=== PATIENT | male | born 1940 | race Caucasian/White ===

== ENCOUNTER → 2016-10-05 | Outpatient (CLI) | payer OTHER ==
[~2016-10-05] MED LIST: BACTRIM,SEPT1 TABLET PO; CARDURA4 MG PO; CEFTIN500 MG PO; CIPRO250 MG PO; CLONIDINE HCL0.1 MG PO; COLACE100 MG PO; DIGOXIN250 MCG PO; DOXAZOSIN MESYLA4 MG PO; FLEXERIL10 MG PO; HYDROCODON-ACE1 EA12 PO; JANTOVEN5 MG PO; KEFLEX500 MG PO; LOPRESSOR100 M1 PO; LOTENSIN40 MG PO; METFORMIN HCL500 MG PO; TAMSULOSIN HCL0.4 MG PO; TENORMIN100 MG PO; TYLENOL ARTHRI650 MG PO; ULTRAM50 MG PO; WARFARIN SODIUM5 MG PO
== END | disposition home or self-care (01) ==
DX: M16.12 Unilateral primary osteoarthritis, left hip (principal); R26.2 Difficulty in walking, not elsewhere classified; M25.552 Pain in left hip; M25.652 Stiffness of left hip, not elsewhere classified; M62.81 Muscle weakness (generalized); Z74.1 Need for assistance with personal care
CPT/HCPCS: 97110 GP; 97150 GO; 97161 GP; 97165 GO; G8978 GP; G8979 GP; G8980 GP; G8987 GO; G8988 GO; G8989 GO

== ENCOUNTER 2016-11-08 21:23 | Inpatient (IN) | payer OTHER ==
[~2016-11-08] VITALS: Ht 180.3 cm; Wt 134.8 kg
[~2016-11-08 21:23] MED LIST changes: +ACTOS45 MG PO; +ARICEPT5 MG PO; +CATAPRES0.1 MG PO; +GLUCOPHAGE1000 MG PO; +PRAVACHOL80 MG PO; +PROSCAR5 MG PO; +VICODIN ES 7.51 EAC1 PO; +XARELTO20 MG PO
[2016-11-09 09:59] LABS: POINT-OF-CARE METER ID UU14174212
[2016-11-09 10:16] VITALS: BP 157/75
[2016-11-09 10:16] LABS: PTT 33.4 SEC (25-37)
[2016-11-09 10:17] LABS: INTER. NORMALIZED RATIO 1.2; PROTHROMBIN TIME 13.3 SEC (10.2-12.9)
[2016-11-09 14:17] LABS: POINT-OF-CARE METER ID UU13113675
[2016-11-09 14:56] LABS: HEMATOCRIT 30.7 % (38.0-50.0); MCV 94.8 FL (86-99)
[2016-11-09 16:36] LABS: POINT-OF-CARE METER ID UU13113675
[2016-11-09 18:36] VITALS: BP 146/67
[2016-11-09 19:20] VITALS: BP 126/60
[2016-11-09 21:35] LABS: POINT-OF-CARE METER ID UU14208753
[2016-11-09 23:25] VITALS: BP 124/65
[2016-11-10 04:09] VITALS: BP 138/70
[2016-11-10 06:25] LABS: INTER. NORMALIZED RATIO 1.3; PROTHROMBIN TIME 14.7 SEC (10.2-12.9)
[2016-11-10 06:35] LABS: ANION GAP 7 MEQ/L (2-14); CHLORIDE 105 MEQ/L (99-109); GFR ESTIMATE (CALCULATED) 49 mL/min/; GLUCOSE 127 mg/dL (70-99); POTASSIUM 5.1 MEQ/L (3.7-5.4); SAMPLE HEMOLYSIS CHECK 0; SAMPLE ICTERIC CHECK 0; SAMPLE LIPEMIA CHECK 0; SODIUM 137 MEQ/L (136-147); UREA NITROGEN (BUN) 23 mg/dL (9-23)
[2016-11-10 07:07] LABS: POINT-OF-CARE METER ID UU14117124
[2016-11-10 08:16] VITALS: BP 108/51
[2016-11-10 11:22] VITALS: BP 94/55
[2016-11-10 11:41] LABS: POINT-OF-CARE METER ID UU14117124
[2016-11-10 12:33] LABS: HEMATOCRIT 28.1 % (38.0-50.0); MCV 95.9 FL (86-99)
[2016-11-10 16:26] VITALS: BP 124/67
[2016-11-10 16:35] LABS: POINT-OF-CARE METER ID UU14117124
[2016-11-10 19:41] VITALS: BP 116/55
[2016-11-10 22:00] LABS: POINT-OF-CARE METER ID UU14117124
[2016-11-10 23:30] VITALS: BP 126/60
[2016-11-11] VITALS (10 sets, daily range): BP systolic 100–141; BP diastolic 43–85
[2016-11-11 06:29] LABS: HEMATOCRIT 24.6 % (38.0-50.0); MCV 96.1 FL (86-99)
[2016-11-11 06:38] LABS: INTER. NORMALIZED RATIO 1.5
[2016-11-11 06:49] LABS: POINT-OF-CARE METER ID UU14117124
[2016-11-11] MEDS ORDERED: COUMADIN2.5 MG PO (09:35)
[2016-11-11] MEDS ORDERED: HYDROCODON-ACE1 EAC7 PO (09:36)
[2016-11-11 11:47] LABS: POINT-OF-CARE METER ID UU14117124
[2016-11-11 16:37] LABS: POINT-OF-CARE METER ID UU14117124
[2016-11-11 21:52] LABS: POINT-OF-CARE METER ID UU14117124
[2016-11-11 22:20] LABS: HEMATOCRIT 26.4 % (38.0-50.0)
[2016-11-12 07:16] LABS: EOSINOPHIL (%) 1.2 % (0-5); EOSINOPHIL COUNT 0.1 K/uL (0-0.3); HEMATOCRIT 27.8 % (38.0-50.0); IMMATURE GRANULOCYTE (%) 0.4 % (0.0-0.7); LYMPHOCYTE COUNT 1.2 K/uL (1.0-2.8); MCH 31.5 PG (29.0-34.0); MCHC 32.7 G/DL (30.0-36.0); MCV 96.2 FL (86-99); MEAN PLAT.VOLUME 10.6 uM^3 (9.0-12.4); MONOCYTE (%) 8.5 % (3-12); MONOCYTE COUNT 0.6 K/uL (0-0.8); NEUTROPHIL (%) 72.5 % (45-76); RBC DIS.WIDTH-CV 14.4 % (11.8-14.6); RBC DIS.WIDTH-SD 50.7 % (39-53); WHITE BLOOD COUNT 6.9 K/uL (4.1-10.2)
[2016-11-12 07:20] LABS: PLATELET COUNT 129 K/uL (156-360); RED BLOOD COUNT 2.89 M/uL (4.00-5.50)
[2016-11-12 07:35] LABS: INTER. NORMALIZED RATIO 1.7; PROTHROMBIN TIME 18.7 SEC (10.2-12.9)
[2016-11-12 08:15] VITALS: BP 138/63
[2016-11-12 11:26] LABS: POINT-OF-CARE METER ID UU14117124
== END 2016-11-12 14:15 | DRG 470 ==
LOC: ENRESERV 21:23 → 2SOUTH 11-09 09:08 → 3EAST 11-09 09:08 → 2SOUTH 11-09 11:41 → ENRESERV 11-09 17:35 → 3EAST 11-09 18:08
PROVIDERS: Orthopaedic Surgery
PROC: 0SRB02A Replacement of Left Hip Joint with Metal on Polyethylene Synthetic Substitute, Uncemented, Open Approach (ICD-10-PCS; principal; 2016-11-11)
DX: M16.12 Unilateral primary osteoarthritis, left hip (principal); E11.22 Type 2 diabetes mellitus with diabetic chronic kidney disease; E78.00 Pure hypercholesterolemia, unspecified; I48.2 Chronic atrial fibrillation; N18.9 Chronic kidney disease, unspecified; E66.01 Morbid (severe) obesity due to excess calories; M25.562 Pain in left knee; I12.9 Hypertensive chronic kidney disease with stage 1 through stage 4 chronic kidney disease, or unspecified chronic kidney disease; Z79.899 Other long term (current) drug therapy; M25.561 Pain in right knee; R60.0 Localized edema; M79.89 Other specified soft tissue disorders; D62 Acute posthemorrhagic anemia; Z96.652 Presence of left artificial knee joint; Z90.49 Acquired absence of other specified parts of digestive tract; Z79.01 Long term (current) use of anticoagulants; Z87.442 Personal history of urinary calculi; Z68.39 Body mass index [BMI] 39.0-39.9, adult; N40.0 Benign prostatic hyperplasia without lower urinary tract symptoms
CPT/HCPCS: 71010; 80048; 82948; 85014; 85018; 85025; 85610; 85730; 93971; 94799; 97530 GO; 97530 GP; J0131; J0360; J0690; J1815; J2250; J7030; J7050; P9016

== ENCOUNTER 2017-01-03 16:31 | Emergency (ER) | payer OTHER ==
[~2017-01-03] VITALS: Ht 180.3 cm; Wt 132.0 kg
[~2017-01-03 16:31] MED LIST changes: +COUMADIN2.5 MG PO; +HYDROCODON-ACE1 EAC7 PO
[2017-01-03 17:40] LABS: HEMATOCRIT 17.9 % (38.0-50.0); MCH 32.4 PG (29.0-34.0); MCV 98.4 FL (86-99); MEAN PLAT.VOLUME 10.2 uM^3 (9.0-12.4); PLATELET COUNT 221 K/uL (156-360); RBC DIS.WIDTH-CV 16.8 % (11.8-14.6); RBC DIS.WIDTH-SD 57.4 % (39-53); RED BLOOD COUNT 1.82 M/uL (4.00-5.50); WHITE BLOOD COUNT 6.7 K/uL (4.1-10.2)
[2017-01-03 17:41] LABS: PTT 66.7 SEC (25-37)
[2017-01-03 17:45] LABS: CHLORIDE 111 mEq/L (99-109); SODIUM 140 mEq/L (136-147)
[2017-01-03 17:47] LABS: GLUCOSE 116 mg/dL (70-99); PROTHROMBIN TIME 160.6 SEC (10.2-12.9)
[2017-01-03 17:48] LABS: ANION GAP 8 MEQ/L (2-14)
[2017-01-03 17:51] LABS: GFR ESTIMATE (CALCULATED) 42 mL/min/
[2017-01-03 17:52] LABS: INTER. NORMALIZED RATIO 14.1; UREA NITROGEN (BUN) 29 mg/dL (9-23)
[2017-01-03 21:28] VITALS: BP 142/80
[2017-01-03 21:50] VITALS: BP 164/71
[2017-01-03 22:54] VITALS: BP 150/92
[2017-01-03 23:15] VITALS: BP 154/56
[2017-01-03 23:42] VITALS: BP 161/66
[2017-01-04 00:45] VITALS: BP 154/66
[2017-01-04 02:29] VITALS: BP 159/63
[2017-01-04 02:52] VITALS: BP 162/65
== END 2017-01-04 03:26 | disposition short-term general hospital (02) ==
LOC: EME 16:31
PROC: 30233N1 Transfusion of Nonautologous Red Blood Cells into Peripheral Vein, Percutaneous Approach (ICD-10-PCS; principal; 2017-01-03)
PROC: 30233K1 Transfusion of Nonautologous Frozen Plasma into Peripheral Vein, Percutaneous Approach (ICD-10-PCS; principal; 2017-01-03)
DX: R58 Hemorrhage, not elsewhere classified (principal); S70.12XA Contusion of left thigh, initial encounter; R79.1 Abnormal coagulation profile; Z96.642 Presence of left artificial hip joint; Z98.890 Other specified postprocedural states; M79.89 Other specified soft tissue disorders; E11.9 Type 2 diabetes mellitus without complications; Z79.84 Long term (current) use of oral hypoglycemic drugs; Z96.652 Presence of left artificial knee joint; Z87.442 Personal history of urinary calculi
CPT/HCPCS: 73706; 80048; 85027; 85610; 85730; 86850; 86900; 86901; 86920; 99281; 99285; C9132; J2270; J3430; J7030; J7050; P9016; P9017

== ENCOUNTER 2017-01-15 16:15 | Inpatient (IN) | payer OTHER ==
[~2017-01-15] VITALS: Ht 180.3 cm; Wt 131.6 kg
[2017-01-15 16:53] LABS: HEMATOCRIT 28.2 % (38.0-50.0); MCH 31.9 PG (29.0-34.0); MCHC 31.6 G/DL (30.0-36.0); MCV 101.1 FL (86-99); MEAN PLAT.VOLUME 9.7 uM^3 (9.0-12.4); PLATELET COUNT 244 K/uL (156-360); RBC DIS.WIDTH-CV 20.8 % (11.8-14.6); RBC DIS.WIDTH-SD 76.5 % (39-53); WHITE BLOOD COUNT 5.1 K/uL (4.1-10.2)
[2017-01-15 16:54] LABS: RED BLOOD COUNT 2.79 M/uL (4.00-5.50)
[2017-01-15 17:04] LABS: CHLORIDE 111 mEq/L (99-109); POTASSIUM 4.2 mEq/L (3.7-5.4); SODIUM 138 mEq/L (136-147)
[2017-01-15 17:06] LABS: GLUCOSE 116 mg/dL (70-99)
[2017-01-15 17:07] LABS: ANION GAP 7 MEQ/L (2-14)
[2017-01-15 17:08] LABS: TOTAL BILIRUBIN 1.1 mg/dL (0.0-1.0)
[2017-01-15 17:09] LABS: ALKALINE PHOSPHATASE 110 IU/L (3-129)
[2017-01-15 17:10] LABS: GFR ESTIMATE (CALCULATED) 57 mL/min/
[2017-01-15 17:11] LABS: UREA NITROGEN (BUN) 22 mg/dL (9-23)
[2017-01-15 17:22] LABS: INTER. NORMALIZED RATIO 1.9; PROTHROMBIN TIME 21.1 SEC (10.2-12.9); PTT 33.5 SEC (25-37)
[2017-01-15 20:22] LABS: TROP-I INTERPRETATION NEGATIVE; TROPONIN-I 0.02 ng/mL (0.0-0.30)
[2017-01-15] MEDS ORDERED: ELIQUIS5 MG PO (21:54)
[2017-01-15] MEDS ORDERED: OXYCODONE HCL5 MG PO (21:54)
[2017-01-15] MEDS ORDERED: IMODIUM MS REL1 EACH PO (21:55)
[2017-01-15] MEDS ORDERED: IRON325 M1 PO (21:55)
[2017-01-15] MEDS ORDERED: BENADRYL ALLERG25 MG PO (21:55)
[2017-01-15] MEDS ORDERED: ULTRAM50 MG PO (21:55)
[2017-01-16] VITALS (8 sets, daily range): BP systolic 157–178; BP diastolic 70–98
[2017-01-16 04:38] LABS: HEMATOCRIT 26.3 % (38.0-50.0); MCH 31.9 PG (29.0-34.0); MCHC 31.9 G/DL (30.0-36.0); MEAN PLAT.VOLUME 9.9 uM^3 (9.0-12.4); PLATELET COUNT 225 K/uL (156-360); RBC DIS.WIDTH-CV 20.7 % (11.8-14.6); RBC DIS.WIDTH-SD 75.2 % (39-53); RED BLOOD COUNT 2.63 M/uL (4.00-5.50); WHITE BLOOD COUNT 4.8 K/uL (4.1-10.2)
[2017-01-16 04:52] LABS: CHLORIDE 109 mEq/L (99-109); POTASSIUM 3.9 mEq/L (3.7-5.4); SODIUM 140 mEq/L (136-147)
[2017-01-16 04:53] LABS: GLUCOSE 107 mg/dL (70-99)
[2017-01-16 04:55] LABS: ANION GAP 11 MEQ/L (2-14)
[2017-01-16 04:57] LABS: GFR ESTIMATE (CALCULATED) > 59 mL/min/
[2017-01-16 04:58] LABS: UREA NITROGEN (BUN) 19 mg/dL (9-23)
[2017-01-16 17:12] LABS: POINT-OF-CARE METER ID UU14314088; POINT-OF-CARE USER ID NUTSLF44
[2017-01-16 20:54] LABS: POINT-OF-CARE METER ID UU14174216
[2017-01-17 04:25] VITALS: BP 154/72
[2017-01-17 05:19] LABS: HEMATOCRIT 25.5 % (38.0-50.0); MCH 31.8 PG (29.0-34.0); MCHC 31.8 G/DL (30.0-36.0); MEAN PLAT.VOLUME 10.2 uM^3 (9.0-12.4); PLATELET COUNT 227 K/uL (156-360); RBC DIS.WIDTH-CV 20.7 % (11.8-14.6); RBC DIS.WIDTH-SD 74.5 % (39-53); RED BLOOD COUNT 2.55 M/uL (4.00-5.50); WHITE BLOOD COUNT 4.5 K/uL (4.1-10.2)
[2017-01-17 06:01] LABS: CHLORIDE 103 MEQ/L (99-109); GFR ESTIMATE (CALCULATED) 53 mL/min/; GLUCOSE 102 mg/dL (70-99); POTASSIUM 3.8 MEQ/L (3.7-5.4); SAMPLE HEMOLYSIS CHECK 0; SAMPLE ICTERIC CHECK 0; SAMPLE LIPEMIA CHECK 0; SODIUM 139 MEQ/L (136-147); UREA NITROGEN (BUN) 19 mg/dL (9-23)
[2017-01-17 06:02] LABS: ANION GAP 10 MEQ/L (2-14)
[2017-01-17 07:56] LABS: INTACT PARATHYROID HORMONE 49 pg/mL (10-69)
[2017-01-17 08:15] VITALS: BP 142/81
[2017-01-17 09:23] LABS: POINT-OF-CARE METER ID UU14174216; POINT-OF-CARE USER ID NUTSLF44
[2017-01-17 12:18] VITALS: BP 148/69
[2017-01-17 17:39] VITALS: BP 135/90
[2017-01-17 20:20] VITALS: BP 155/68
[2017-01-17 21:03] LABS: POINT-OF-CARE METER ID UU14174216
[2017-01-18] VITALS (7 sets, daily range): BP systolic 124–171; BP diastolic 58–82
[2017-01-18 05:58] LABS: ANION GAP 8 MEQ/L (2-14); CHLORIDE 104 MEQ/L (99-109); GFR ESTIMATE (CALCULATED) 53 mL/min/; GLUCOSE 104 mg/dL (70-99); POTASSIUM 3.5 MEQ/L (3.7-5.4); SAMPLE HEMOLYSIS CHECK 0; SAMPLE ICTERIC CHECK 0; SAMPLE LIPEMIA CHECK 0; SODIUM 140 MEQ/L (136-147); UREA NITROGEN (BUN) 18 mg/dL (9-23)
[2017-01-18 07:49] LABS: POINT-OF-CARE METER ID UU13113698
[2017-01-18 13:24] LABS: HEMATOCRIT 29.1 % (38.0-50.0); MCH 32.4 PG (29.0-34.0); MCV 101.4 FL (86-99); MEAN PLAT.VOLUME 10.1 uM^3 (9.0-12.4); PLATELET COUNT 245 K/uL (156-360); RBC DIS.WIDTH-CV 20.5 % (11.8-14.6); RBC DIS.WIDTH-SD 74.7 % (39-53); RED BLOOD COUNT 2.87 M/uL (4.00-5.50); WHITE BLOOD COUNT 5.7 K/uL (4.1-10.2)
[2017-01-18 20:52] LABS: POINT-OF-CARE METER ID UU14174216
[2017-01-19 03:00] VITALS: BP 138/80
[2017-01-19 05:27] LABS: HEMATOCRIT 26.5 % (38.0-50.0); MCH 31.9 PG (29.0-34.0); MCHC 31.7 G/DL (30.0-36.0); MCV 100.8 FL (86-99); MEAN PLAT.VOLUME 9.9 uM^3 (9.0-12.4); PLATELET COUNT 228 K/uL (156-360); RBC DIS.WIDTH-SD 72.3 % (39-53); RED BLOOD COUNT 2.63 M/uL (4.00-5.50); WHITE BLOOD COUNT 4.8 K/uL (4.1-10.2)
[2017-01-19 05:57] LABS: ANION GAP 9 MEQ/L (2-14); CHLORIDE 103 MEQ/L (99-109); GFR ESTIMATE (CALCULATED) 53 mL/min/; GLUCOSE 102 mg/dL (70-99); POTASSIUM 3.8 MEQ/L (3.7-5.4); SAMPLE HEMOLYSIS CHECK 0; SAMPLE ICTERIC CHECK 0; SAMPLE LIPEMIA CHECK 0; SODIUM 139 MEQ/L (136-147); UREA NITROGEN (BUN) 21 mg/dL (9-23)
[2017-01-19 07:28] VITALS: BP 150/63
[2017-01-19] MEDS ORDERED: APRESOLINE25 MG PO (07:54)
[2017-01-19] MEDS ORDERED: METOPROLOL TART25 MG PO (07:56)
[2017-01-19] MEDS ORDERED: ASPIR 8181 M1 PO (09:54)
== END 2017-01-19 10:16 | disposition home or self-care (01) | DRG 813 ==
LOC: EME 16:15 → EDOF 22:39 → 4EAST 22:39 → ENRESERV 22:40 → 4EAST 01-16 00:56
PROVIDERS: Emergency Medicine; Family Medicine; Hospitalist; Internal Medicine; Nurse Practitioner Family
DX: D68.32 Hemorrhagic disorder due to extrinsic circulating anticoagulants (principal); M79.81 Nontraumatic hematoma of soft tissue; T45.515A Adverse effect of anticoagulants, initial encounter; I11.0 Hypertensive heart disease with heart failure; I50.33 Acute on chronic diastolic (congestive) heart failure; I27.20 Pulmonary hypertension, unspecified; D64.9 Anemia, unspecified; E87.6 Hypokalemia; E11.9 Type 2 diabetes mellitus without complications; I48.2 Chronic atrial fibrillation; E66.9 Obesity, unspecified; Z68.41 Body mass index [BMI] 40.0-44.9, adult; N28.9 Disorder of kidney and ureter, unspecified; E78.5 Hyperlipidemia, unspecified; Z66 Do not resuscitate; N40.0 Benign prostatic hyperplasia without lower urinary tract symptoms; F03.90 Unspecified dementia, unspecified severity, without behavioral disturbance, psychotic disturbance, mood disturbance, and anxiety; N50.89 Other specified disorders of the male genital organs; Z79.84 Long term (current) use of oral hypoglycemic drugs; Z86.718 Personal history of other venous thrombosis and embolism; Z96.642 Presence of left artificial hip joint; Z96.652 Presence of left artificial knee joint
CPT/HCPCS: 71010; 80048; 80053; 82948; 83880; 83970; 84484; 85027; 85610; 85730; 93005; 93306; 93971; 99281; 99284; J0360; J1815; J1940

== ENCOUNTER 2017-02-17 10:50 | Inpatient (IN) | payer OTHER ==
[~2017-02-17] VITALS: Ht 180.3 cm; Wt 123.0 kg
[~2017-02-17 10:50] MED LIST changes: +APRESOLINE25 MG PO; +ASPIR 8181 M1 PO; +BENADRYL ALLERG25 MG PO; +ELIQUIS5 MG PO; +IMODIUM MS REL1 EACH PO; +IRON325 M1 PO; +METOPROLOL TART25 MG PO; +OXYCODONE HCL5 MG PO
[2017-02-17 13:29] LABS: APPEARANCE CLOUDY ((CLEAR)); BILIRUBIN NEGATIVE; BLOOD LARGE; COLOR AMBER ((YELLOW)); GLUCOSE (STRIP) NEGATIVE; KETONES NEGATIVE; LEUKOCYTES LARGE; NITRITE NEGATIVE; PROTEIN (STRIP) 100; UROBILINOGEN 0.2 MG/DL (0.2-1.0)
[2017-02-17 13:37] LABS: BACTERIA RARE /HPF; CALCIUM OXALATE CRYSTALS 3+ /HPF; EPITHELIAL CELLS RARE /HPF; MUCUS TRACE /LPF; RED BLOOD CELLS TNTC /HPF (0-5); UCUL ADDED? YES; WHITE BLOOD CELLS TNTC /HPF (0-5)
[2017-02-17 15:11] LABS: HEMOGLOBIN 11.9 G/DL (12.5-16.6); MCH 31.7 PG (29.0-34.0); MCHC 33.1 G/DL (30.0-36.0); PLATELET COUNT 236 K/uL (156-360); RBC DIS.WIDTH-CV 14.7 % (11.8-14.6); RBC DIS.WIDTH-SD 51.9 % (39-53); RED BLOOD COUNT 3.75 M/uL (4.00-5.50)
[2017-02-17 15:15] LABS: CHLORIDE 105 mEq/L (99-109); SODIUM 141 mEq/L (136-147)
[2017-02-17 15:17] LABS: GLUCOSE 129 mg/dL (70-99)
[2017-02-17 15:21] LABS: CREATININE 1.4 mg/dL (0.6-1.3); GFR ESTIMATE (CALCULATED) 53 mL/min/ (58.99-99999)
[2017-02-17 15:22] LABS: UREA NITROGEN (BUN) 30 mg/dL (9-23)
[2017-02-17] MEDS ORDERED: FUROSEMIDE80 MG PO (15:53)
[2017-02-17] MEDS ORDERED: ELIQUIS5 MG PO (15:53)
[2017-02-17 17:10] VITALS: BP 146/83
[2017-02-17 23:05] VITALS: BP 197/91
[2017-02-18 03:36] VITALS: BP 131/72
[2017-02-18 08:12] VITALS: BP 141/81
[2017-02-18 11:56] VITALS: BP 140/79
[2017-02-18 16:13] VITALS: BP 140/76
[2017-02-18 20:28] VITALS: BP 139/73
[2017-02-19] VITALS (7 sets, daily range): BP systolic 107–154; BP diastolic 65–84
[2017-02-19 10:47] LABS: BASOPHIL (%) 0.4 % (0-1); BASOPHIL COUNT 0.1 K/uL (0-0.1); EOSINOPHIL (%) 0.3 % (0-5); HEMATOCRIT 34.1 % (38.0-50.0); IMMATURE GRANULOCYTE (%) 0.6 % (0.0-0.7); LYMPHOCYTE (%) 16.6 % (15-42); LYMPHOCYTE COUNT 1.9 K/uL (1.0-2.8); MCH 31.3 PG (29.0-34.0); MCHC 32.3 G/DL (30.0-36.0); MCV 96.9 FL (86-99); MONOCYTE (%) 5.4 % (3-12); MONOCYTE COUNT 0.6 K/uL (0-0.8); NEUTROPHIL (%) 76.7 % (45-76); NEUTROPHIL COUNT 8.6 K/uL (1.8-6.4); PLATELET COUNT 243 K/uL (156-360); RBC DIS.WIDTH-CV 14.6 % (11.8-14.6); RBC DIS.WIDTH-SD 52.1 % (39-53); RED BLOOD COUNT 3.52 M/uL (4.00-5.50); WHITE BLOOD COUNT 11.2 K/uL (4.1-10.2)
[2017-02-19 11:08] LABS: CHLORIDE 102 MEQ/L (99-109); MAGNESIUM 1.7 mg/dl (1.3-2.7); POTASSIUM 3.5 MEQ/L (3.7-5.4); SODIUM 139 MEQ/L (136-147)
[2017-02-19 11:13] LABS: CREATININE 1.5 MG/DL (0.6-1.3); GFR ESTIMATE (CALCULATED) 49 mL/min/ (58.99-99999); UREA NITROGEN (BUN) 36 mg/dL (9-23)
[2017-02-19 11:17] LABS: GLUCOSE 210 mg/dL (70-99)
[2017-02-20] VITALS (7 sets, daily range): BP systolic 117–152; BP diastolic 58–82
[2017-02-20 07:28] LABS: BASOPHIL (%) 0.8 % (0-1); BASOPHIL COUNT 0.1 K/uL (0-0.1); EOSINOPHIL (%) 1.5 % (0-5); EOSINOPHIL COUNT 0.1 K/uL (0-0.3); HEMATOCRIT 31.9 % (38.0-50.0); HEMOGLOBIN 10.3 G/DL (12.5-16.6); IMMATURE GRANULOCYTE (%) 0.7 % (0.0-0.7); LYMPHOCYTE COUNT 2.2 K/uL (1.0-2.8); MCH 31.3 PG (29.0-34.0); MCHC 32.3 G/DL (30.0-36.0); MONOCYTE (%) 7.3 % (3-12); MONOCYTE COUNT 0.7 K/uL (0-0.8); NEUTROPHIL (%) 66.7 % (45-76); NEUTROPHIL COUNT 6.3 K/uL (1.8-6.4); PLATELET COUNT 217 K/uL (156-360); RBC DIS.WIDTH-CV 14.5 % (11.8-14.6); RBC DIS.WIDTH-SD 51.1 % (39-53); RED BLOOD COUNT 3.29 M/uL (4.00-5.50); WHITE BLOOD COUNT 9.4 K/uL (4.1-10.2)
[2017-02-20 07:54] LABS: CHLORIDE 102 MEQ/L (99-109); CREATININE 1.4 MG/DL (0.6-1.3); GFR ESTIMATE (CALCULATED) 53 mL/min/ (58.99-99999); MAGNESIUM 1.8 mg/dl (1.3-2.7); SODIUM 139 MEQ/L (136-147); UREA NITROGEN (BUN) 34 mg/dL (9-23)
[2017-02-20 07:55] LABS: GLUCOSE 112 mg/dL (70-99)
[2017-02-20 17:44] LABS: INTER. NORMALIZED RATIO 1.6
[2017-02-21 05:11] VITALS: BP 125/64
[2017-02-21 06:08] LABS: CHLORIDE 100 MEQ/L (99-109); CREATININE 1.7 MG/DL (0.6-1.3); GFR ESTIMATE (CALCULATED) 42 mL/min/ (58.99-99999); GLUCOSE 115 mg/dL (70-99); POTASSIUM 3.4 MEQ/L (3.7-5.4); SODIUM 136 MEQ/L (136-147); UREA NITROGEN (BUN) 42 mg/dL (9-23)
[2017-02-21 08:11] VITALS: BP 125/74
[2017-02-21 12:26] VITALS: BP 111/56
[2017-02-21 15:02] LABS: INTER. NORMALIZED RATIO 1.3
[2017-02-21 16:35] VITALS: BP 119/69
[2017-02-21 19:49] VITALS: BP 124/61
[2017-02-21 23:52] VITALS: BP 115/61
[2017-02-22 04:47] VITALS: BP 121/74
[2017-02-22 06:24] LABS: INTER. NORMALIZED RATIO 1.3
[2017-02-22 06:47] LABS: CHLORIDE 103 MEQ/L (99-109); CREATININE 1.9 MG/DL (0.6-1.3); GFR ESTIMATE (CALCULATED) 37 mL/min/ (58.99-99999); GLUCOSE 113 mg/dL (70-99); SODIUM 139 MEQ/L (136-147); UREA NITROGEN (BUN) 38 mg/dL (9-23)
[2017-02-22 08:13] VITALS: BP 140/70
[2017-02-22 10:34] LABS: CREATINE KINASE 21 IU/L (1-294)
[2017-02-22 11:28] LABS: APPEARANCE SL.HAZY ((CLEAR)); BILIRUBIN NEGATIVE; BLOOD MODERATE; COLOR YELLOW ((YELLOW)); GLUCOSE (STRIP) NEGATIVE; KETONES NEGATIVE; LEUKOCYTES LARGE; NITRITE NEGATIVE; PROTEIN (STRIP) NEGATIVE; SPECIFIC GRAVITY 1.013 (1.000-1.030); UROBILINOGEN 0.2 MG/DL (0.2-1.0)
[2017-02-22 11:36] LABS: BACTERIA RARE /HPF; EPITHELIAL CELLS RARE /HPF; MUCUS TRACE /LPF; WHITE BLOOD CELLS TNTC /HPF (0-5)
[2017-02-22 11:47] LABS: UR CREATININE CONCENTRATION 118.5 MG/DL
[2017-02-22 12:15] LABS: EOSINOPHILS,URINE SMALL AMOUNT
[2017-02-22 16:22] VITALS: BP 123/65
[2017-02-22 19:33] VITALS: BP 130/64
[2017-02-23 00:06] VITALS: BP 112/61
[2017-02-23 04:18] VITALS: BP 124/78
[2017-02-23 04:56] LABS: HEMATOCRIT 29.6 % (38.0-50.0); HEMOGLOBIN 9.9 G/DL (12.5-16.6); MCH 32.1 PG (29.0-34.0); MCHC 33.4 G/DL (30.0-36.0); MCV 96.1 FL (86-99); PLATELET COUNT 213 K/uL (156-360); RBC DIS.WIDTH-CV 14.3 % (11.8-14.6); RBC DIS.WIDTH-SD 50.4 % (39-53); RED BLOOD COUNT 3.08 M/uL (4.00-5.50); WHITE BLOOD COUNT 10.4 K/uL (4.1-10.2)
[2017-02-23 05:09] LABS: CHLORIDE 104 mEq/L (99-109); POTASSIUM 3.8 mEq/L (3.7-5.4); SODIUM 138 mEq/L (136-147)
[2017-02-23 05:10] LABS: GLUCOSE 120 mg/dL (70-99)
[2017-02-23 05:14] LABS: GFR ESTIMATE (CALCULATED) 57 mL/min/ (58.99-99999)
[2017-02-23 05:15] LABS: UREA NITROGEN (BUN) 31 mg/dL (9-23)
[2017-02-23 05:20] LABS: CREATININE 1.3 mg/dL (0.6-1.3)
[2017-02-23 08:13] VITALS: BP 135/73
[2017-02-23 10:10] LABS: INTER. NORMALIZED RATIO 1.4
[2017-02-23 12:24] VITALS: BP 102/52
[2017-02-23 16:30] VITALS: BP 134/68
[2017-02-23 19:45] VITALS: BP 131/70
[2017-02-24] VITALS (7 sets, daily range): BP systolic 108–136; BP diastolic 57–73
[2017-02-24 05:55] LABS: INTER. NORMALIZED RATIO 1.4
[2017-02-24 06:08] LABS: CHLORIDE 105 MEQ/L (99-109); CREATININE 1.4 MG/DL (0.6-1.3); GFR ESTIMATE (CALCULATED) 53 mL/min/ (58.99-99999); GLUCOSE 101 mg/dL (70-99); POTASSIUM 4.1 MEQ/L (3.7-5.4); SODIUM 137 MEQ/L (136-147); UREA NITROGEN (BUN) 29 mg/dL (9-23)
[2017-02-25 00:30] VITALS: BP 111/67
[2017-02-25 03:52] VITALS: BP 127/67
[2017-02-25 08:03] LABS: INTER. NORMALIZED RATIO 1.5
[2017-02-25 08:14] VITALS: BP 119/60
[2017-02-25 12:01] VITALS: BP 99/65
[2017-02-25 15:52] VITALS: BP 131/72
[2017-02-25 23:06] VITALS: BP 125/77
[2017-02-26 05:06] VITALS: BP 143/69
[2017-02-26 05:30] LABS: INTER. NORMALIZED RATIO 1.8
[2017-02-26 08:52] VITALS: BP 134/76
[2017-02-26 11:57] VITALS: BP 111/62
[2017-02-26 16:57] VITALS: BP 139/69
[2017-02-26 19:24] VITALS: BP 139/67
[2017-02-26 23:51] VITALS: BP 127/65
[2017-02-27 04:33] VITALS: BP 116/80
[2017-02-27 05:56] LABS: INTER. NORMALIZED RATIO 2.2
[2017-02-27 08:30] VITALS: BP 167/96
[2017-02-27 12:07] VITALS: BP 129/82
[2017-02-27] MEDS ORDERED: COUMADIN5 MG PO (13:48)
[2017-02-27] MEDS ORDERED: LOPRESSOR50 MG PO (13:48)
[2017-02-27] MEDS ORDERED: ENDOCET 5-3251 EACH PO (13:48)
[2017-02-27] MEDS ORDERED: LASIX40 MG PO (13:48)
== END 2017-02-27 16:48 | disposition home or self-care (01) | DRG 559 ==
LOC: EME 10:50 → 3EAST 15:07 → EDOF 15:07 → ENRESERV 15:08 → 3EAST 17:10
PROVIDERS: Emergency Medicine; Hospitalist; Internal Medicine; Physician Assistant; Student in an Organized Health Care Education/Training Program
PROC: 0SSBXZZ Reposition Left Hip Joint, External Approach (ICD-10-PCS; principal; 2017-02-17)
DX: T84.021A Dislocation of internal left hip prosthesis, initial encounter (principal); N17.0 Acute kidney failure with tubular necrosis; I48.2 Chronic atrial fibrillation; N18.4 Chronic kidney disease, stage 4 (severe); E11.22 Type 2 diabetes mellitus with diabetic chronic kidney disease; I50.9 Heart failure, unspecified; I27.20 Pulmonary hypertension, unspecified; I13.0 Hypertensive heart and chronic kidney disease with heart failure and stage 1 through stage 4 chronic kidney disease, or unspecified chronic kidney disease; E78.5 Hyperlipidemia, unspecified; N39.0 Urinary tract infection, site not specified; Y93.01 Activity, walking, marching and hiking; E66.9 Obesity, unspecified; W01.0XXA Fall on same level from slipping, tripping and stumbling without subsequent striking against object, initial encounter; T88.4XXA Failed or difficult intubation, initial encounter; M79.89 Other specified soft tissue disorders; I25.10 Atherosclerotic heart disease of native coronary artery without angina pectoris; E86.9 Volume depletion, unspecified; B95.2 Enterococcus as the cause of diseases classified elsewhere; Y79.2 Prosthetic and other implants, materials and accessory orthopedic devices associated with adverse incidents; N28.1 Cyst of kidney, acquired; G47.33 Obstructive sleep apnea (adult) (pediatric); N40.0 Benign prostatic hyperplasia without lower urinary tract symptoms; I34.0 Nonrheumatic mitral (valve) insufficiency; Z79.01 Long term (current) use of anticoagulants; Y92.013 Bedroom of single-family (private) house as the place of occurrence of the external cause; Z87.442 Personal history of urinary calculi; Z90.49 Acquired absence of other specified parts of digestive tract; Z79.82 Long term (current) use of aspirin; Z68.38 Body mass index [BMI] 38.0-38.9, adult; Z79.899 Other long term (current) drug therapy; Z79.84 Long term (current) use of oral hypoglycemic drugs
CPT/HCPCS: 71010; 73501; 73502; 73560; 76000; 76770; 80048; 81003; 82436; 82550; 82570; 82948; 83735; 84156; 84300; 85025; 85027; 85610; 87077; 87086; 87186; 89190; 93005; 97530 GP; 99281; 99285; J0290; J0330; J0696; J1100; J1170; J1650; J1815; J2270; J3010; J3475; J7030; J7050; J7120